=== PATIENT | female | born 1945 | race Caucasian/White ===

== ENCOUNTER 2016-09-12 06:35 | Inpatient (IN) | payer MEDICARE ==
[2016-09-12] VITALS (14 sets, daily range): BP systolic 101–152; BP diastolic 50–86
[~2016-09-12] VITALS: Ht 152.4 cm; Wt 71.2 kg
[~2016-09-12 06:35] MED LIST: ASPIRIN EC81 MG PO; ASPIRIN LOW DOS81 MG PO; AVELOX400 MG PO; AZITHROMYCIN500 MG PO; CALCIUM/D600 M3 PO; DIFLUCAN PO; DUONEB INH; ESTRACE1 MG PO; FISH OIL1000 MG PO; FLEXERIL10 MG PO; LASIX 20 MG20 MG/TAB PO; LEVAQUIN750 MG PO; LORTAB 5 PO; LORTAB5 PO; LOTRISONE CREAM15 G1 EX; Levaquin OR; MEDDOSEPAK; NEXIUM40 M1 PO; NEXIUM40 MG PO; OMNICEF300 M1 OR; OS CAL PO; OSCAL PO; OSTEO BI-FLE OR; PREDNISONE10 MG PO; PREDNISONE2.5 MG PO; PREDNISONE50 MG; PROVENTIL0.083 % IN; SEROQUEL50 MG OR; SERTRALINE25 MG PO; SERTRALINE50 MG PO; SYNTHROID75 MCG PO; VESICARE5 MG PO; WOMENS DAILY PO; XANAX0.25 MG PO; ZOLOFT50 MG PO
--- NOTE | 2016-09-12 06:35 | NUR ---
PATIENT IMMEDIATELY TO TREATMENT AREA, UNDRESSED INTO A GOWN. PLACED ON MONITOR, TRIAGE COMPLETED AT BEDSIDE. AWAITING MD SPIVEY.
--- NOTE | 2016-09-12 07:30 | NUR ---
PT RESTING COMFORTABLY ON STRETCHER. SAO2=97% ON RA. SKIN WARM AND DRY. PT A&O X3. CALL LIGHT WITHIN REACH.
[2016-09-12] MEDS ORDERED: SYMBICORT1 AE1 IN ×2 (08:04→15:45)
[2016-09-12] MEDS ORDERED: FOLIC ACID1 MG PO (08:05)
[2016-09-12] MEDS ORDERED: OTREXUP7.5 MG/0.4 SC (08:05)
[2016-09-12] MEDS ORDERED: CETIRIZINE10 MG PO (08:06)
[2016-09-12] MEDS ORDERED: PREDNISONE5 MG PO (08:07)
[2016-09-12] MEDS ORDERED: PREDNISONE1 MG PO (08:07)
[2016-09-12 08:08] LABS: HEMATOCRIT 36.8 % (37.0-47.0); IMMATURE GRANULOCYTES 0.5 % (0.0-1.0); MEAN CELL VOLUME 95.1 fL CALC (80.0-100.0); MEAN CORPUSCULAR HGB CONC 32.6 g/L CALC (32.0-36.0); NEUT# 8.4 thou/uL (2.00-7.15); RED BLOOD COUNT 3.87 mill/uL (4.20-5.60); RED CELL DISTRI WIDTH 14.6 % (11.5-15.5)
[2016-09-12 08:22] LABS: INTERNATIONAL NORMALIZED RATIO 0.9 RATIO (0.7-1.3); PROTHROMBIN TIME 10.2 SECONDS (9.0-12.5)
[2016-09-12 08:25] LABS: ALBUMIN 4.1 g/dL (3.2-5.0); ALKALINE PHOSPHATASE 102 u/l (38-126); ANION GAP 14 (6-22 (CALC)); BILIRUBIN, TOTAL 0.9 mg/dL (0.0-1.4); BUN 7 mg/dL (8-23); BUN/CREATININE RATIO 12 (12-20 (CALC)); CALCIUM 9.6 mg/dL (8.4-10.2); CARBON DIOXIDE 26 mmol/l (22-30); CHLORIDE 99 mmol/l (95-108); CREATININE 0.6 mg/dL (0.5-1.0); GFR > 60 ML/MIN (>=60 (CALC)); GFR FOR AFR.AMER. > 60 ML/MIN (>=60 (CALC)); GLUCOSE 100 mg/dL (82-115); POTASSIUM 3.7 mmol/l (3.5-5.1); SGOT/AST 27 u/l (9-36); SGPT/ALT 24 u/l (11-66); SODIUM 135 mmol/l (137-146); TOTAL PROTEIN 7.9 g/dL (6.3-8.2)
[2016-09-12 08:36] LABS: MYOGLOBIN 37 ng/mL (0 - 62)
--- NOTE | 2016-09-12 08:41 | NUR ---
PT RESTING ON STRETCHER. SAO2 BETWEEN 93-96% ON RA. LUNG SOUNDS DIMINISHED ON R SIDE. RESP EVEN AND UNLABORED. RR 24. SKIN WARM AND DRY. PT A& OX3. CALL LIGHT WIHTIN REACH.
--- NOTE | 2016-09-12 08:55 | NUR ---
PT'S HR UP TO 160-170S. MD NOTIFIED AND AT BEDSIDE.
--- NOTE | 2016-09-12 09:09 | NUR ---
SECOND 10MG CARDIAZEM GIVEN IVP PER MD ORDER FOR HR 154 BP 147/60. [id number]% ON 2L NC. PT ANXIOUS AND TEARFUL, WORRIED ABOUT "MAKING IT TO HER GRANDDAUGHTER;S [place]ING".
--- NOTE | 2016-09-12 09:45 | NUR ---
HR REMAINS IN 160-180S. AWARE. [id number]% ON 2L NC. PT RESTING COMFORTABLY. NO DISTRESS. PT DENIES PAIN AND SOB. CONTINUING TO MONITOR
--- NOTE | 2016-09-12 09:51 | NUR ---
CARDIAZEM TITRATED TO 15ML/HR FOR HR [id number]. AWARE.
--- NOTE | 2016-09-12 10:17 | NUR ---
PT CONVERTED TO SR WITH HR 108. NOTIFIED.
--- NOTE | 2016-09-12 10:33 | NUR ---
[facility] STOPPED PER .
--- NOTE | 2016-09-12 10:45 | NUR ---
REPORT GIVEN TO NURYS HUMPHREY
--- NOTE | 2016-09-12 11:13 | NUR ---
UNASSYN BEGUN PER ORDER, INFUSING THRU LAC
--- NOTE | 2016-09-12 11:58 | NUR ---
REPORT GIVEN TO SHERYL HUMPHREY
--- NOTE | 2016-09-12 12:12 | NUR ---
PT ARRIVED TO FLOOR VIA STRETCHER ACCOMPANIED BY ED STAFF X 1. PT DENIES PAIN. REPORTING OF CONCERNS ENCOURAGED. PLAN OF CARE DISCUSSED. PT ANXIOUS. TEARFUL. EMOTIONAL COMFORT PROVIDED. RELAXATION ATTEMPTS MADE. PT REFUSING TO ANSWER ADMISSION QUESTIONS AT THIS TIME. CALL LIGHT REVIEWED AND IN REACH. PT STATES UNDERSTANDING.
--- NOTE | 2016-09-12 12:13 | NUR ---
PT TO ROOM MED SURG FOR CONTINUATION OF CARE.
[2016-09-12 12:18] LABS: URINE BILIRUBIN - DIPSTICK NEGATIVE (NEGATIVE); URINE BLOOD DIPSTICK TRACE-INTACT (NEGATIVE); URINE CLARITY CLEAR; URINE COLOR YELLOW; URINE GLUCOSE - DIPSTICK NEGATIVE (NEGATIVE); URINE KETONE NEGATIVE (NEGATIVE); URINE LEUK ESTERASE NEGATIVE (NEGATIVE); URINE NITRITE - DIPSTICK NEGATIVE (Negative); URINE PH 7.5 (4.5-8.0); URINE PROTEIN - DIPSTICK NEGATIVE (NEG-TRACE); URINE UROBILINOGEN - DIPSTICK 0.2 E.U./dL (0.2)
--- NOTE | 2016-09-12 15:00 | NUR ---
PT REFUSING CT AT THIS TIME. STATES "IM NOT GOING ANYWHERE UNTIL I TALK TO THE DR." DR. AUGUSTIN NOTIFIED AND IN TO SEE PT NOW. MULTIPLE FAMILY MEMBERS AT BEDSIDE.
--- NOTE | 2016-09-12 16:17 | NUR ---
NOTIFIED BY ED STAFF OF AFIB W/ RVR, RATE IN 180'S. DR. AL NOTIFIED. ORDER FOR TRANSFER TO ICU GIVEN. PT TRANSFERED TO ICU BED 4. NO SOB NOTED. DENIES PAIN.
--- NOTE | 2016-09-12 16:25 | NUR ---
PT ARRIVED TO UNIT BED 4 VIA W/C TRANSFER FROM MED SURG FOR A FIB RVR, PT ALERT AND ORIENTED STOOD AND TRANSFERRED FROM WC TO BED WITH MIN ASSIST, SOME ANXIETY NOTED, PT POOR HISTORIAN RELATED TO PERSONAL MEDICAL HISTORY, ASSESSMENT COMPLETED SEE LUNGS CLEAR WITH HISTORY OF LUNG CA IN R MIDDLE LOBE WITH SURGICAL INTERVENTION (5YRS AGO) AND RE-OCCURENCE IN RLL RECENTLY WITH RADIATION TREATMENT WITH , SKIN WARM DRY AND INTACT WITH NO BREAKDOWN NOTED, BP STABLE TEMP 99.1, TELE READING A FIB RATE 150-200, ORIENTED TO ROOM AND UNIT, ALL MONITORING EQUIPMENT EXPLAINED PRIOR TO APPLICATION, CALL ESTEVEZ WITHIN REACH, WILL CONTINUE TO MONITOR
--- NOTE | 2016-09-12 16:40 | NUR ---
HERE TO SEE PT, VERBAL ORDER TO HOLD DIGOXIN ( PREVIOUSLY ORDERED) AND TO GIVE CARDIZEM BOLUS IV FOLLOWED BY GTT IF NO CONVERSION WITH BOLUS...WILL MEDICATE ORDERED
--- NOTE | 2016-09-12 17:05 | NUR ---
MEDICATED WITH CARDIZEM BOLUS AND GTT STARTED ORDERED, TELE STILL READING A FIB WITH RATE MORE SLIGHTLY MORE CONTROLLED BUT OCCASIONALLY STILL UP TO 150'S, DAUGHTER AT BEDSIDE, OFFERS NO OTHER COMPLAINTS, WILL CONTINUE TO MONITOR
--- NOTE | 2016-09-12 17:56 | NUR ---
SET UP ASSIST PROVIDED EARLIER FOR PM MEAL, PT CONVERTED TO SR RATE IN THE 80'S RT AT BEDSIDE FOR EKG, WILL START CARDIZEM PO ORDERED, DAUGHTER REMAINS AT BEDSIDE, WILL CONTINUE TO MONITOR
--- NOTE | 2016-09-12 19:00 | NUR ---
REPORT FROM MILAGRO NASSAR. ASSUMED PT. CARE.
--- NOTE | 2016-09-12 19:30 | NUR ---
PT. AWAKE, ALERT, ORIENTED X 3. DENIES COMPLAINTS AT THIS TIME. PT. ASSISTED TO BEDSIDE COMMODE. APPROX 650 CC OF CLEAR YELLOW URINE OUT AT THIS TIME. DAUGHTER AT BEDSIDE. RESPS EVEN AND UNLABORED. MILD DIAZ. COUGH NOTED, BUT DENIES SPUTUM PRODUCTION. NO EDEMA NOTED.
--- NOTE | 2016-09-12 21:15 | NUR ---
RT CALLED FOR NEB TREATMENT AND AERO CHAMBER/SPACER. PT. TOLERATED NEB TREATMENT WELL. STATES IMPROVEMENT IN WORK OF BREATHING. RESPS EVEN AND UNLABORED. PT. STATES SHE WOULD LIKE TO WAIT TO TAKE HER XANAX PRN SLEEP. MAE. CALVILLO. CALL LIGHT WITHIN REACH. REMAINS IN SINUS RHYTHM WITHOUT ECTOPY.
--- NOTE | 2016-09-12 23:00 | NUR ---
PT. REMAINS SINUS RHYTHM ON THE MONITOR. DENIES COMPLAINTS OR NEED AT THIS TIME. IV DRESSING TO LAC CHANGED AND FLUSHED AT THIS TIME. PT. CONTINUES TO DENY PAIN OR NEED. WILL CONTINUE TO MONITOR.
[2016-09-13] VITALS (8 sets, daily range): BP systolic 107–140; BP diastolic 52–70
--- NOTE | 2016-09-13 | NUR ---
PT. ASSISTED TO BEDSIDE COMMODE. REMAINS SINUS RHYTHM IN THE 70-80'S. BP STABLE. APPROX 200 CC OF URINE WITH STRONG ODOR NOTED. PT. STATES SHE HAS HX OF YEAST INFECTIONS WHEN SHE TAKES ANTIBIOTICS.
--- NOTE | 2016-09-13 00:05 | NUR ---
ZOSYN INFUSING WITHOUT SX OF INFILTRATION OR EXTRAVASATION. NO REACTIONS NOTED. PT. REMAINS AFEBRILE AT THIS TIME. AROUSABLE TO LIGHT VERBAL STIMULI. CALL LIGHT WITHIN REACH, WILL CONTINUE TO MONITOR.
--- NOTE | 2016-09-13 01:45 | NUR ---
PT. RESTING IN BED IN NO DISTRESS. PT. REMAINS SINUS RHYTHM WITHOUT ECTOPY. RESPS EVEN AND UNLABORED. SKIN WARM AND DRY. REMAINS AFEBRILE. CONTINUES WITH INTERMITTENT DRY COUGH. CALL LIGHT WITHIN REACH.
--- NOTE | 2016-09-13 03:46 | NUR ---
PT. AWAKE, WATCHING TELEVISION AT THIS TIME. DENIES COMPLAINTS OR NEED. RESPS EVEN AND UNLABORED. SINUS RHYTHM 60-70'S. WILL CONTINUE TO MONITOR.
--- NOTE | 2016-09-13 04:15 | NUR ---
LAB AT BEDSIDE TO DRAW PT. REMAINS AWAKE, ALERT, ORIENTED X 3. SKIN WARM AND DRY. AFEBRILE. RESPS EVEN AND UNLABORED. REMAINS IN SINUS RHYTHM WITHOUT ECTOPY NOTED.
[2016-09-13 04:36] LABS: IMMATURE GRANULOCYTES 0.7 % (0.0-1.0); MEAN CELL VOLUME 95.2 fL CALC (80.0-100.0); MEAN CORPUSCULAR HGB 30.8 pG CALC (26.0-32.0); MEAN CORPUSCULAR HGB CONC 32.4 g/L CALC (32.0-36.0); NEUT# 13.27 thou/uL (2.00-7.15); RED BLOOD COUNT 3.57 mill/uL (4.20-5.60); RED CELL DISTRI WIDTH 14.8 % (11.5-15.5)
[2016-09-13 04:50] LABS: ANION GAP 14 (6-22 (CALC)); BUN 13 mg/dL (8-23); BUN/CREATININE RATIO 19 (12-20 (CALC)); CALCIUM 9.1 mg/dL (8.4-10.2); CALCULATED LDLCHOLESTEROL 60 mg/dL (62-129 (CALC)); CARBON DIOXIDE 23 mmol/l (22-30); CHLORIDE 101 mmol/l (95-108); CREATININE 0.7 mg/dL (0.5-1.0); GFR > 60 ML/MIN (>=60 (CALC)); GFR FOR AFR.AMER. > 60 ML/MIN (>=60 (CALC)); GLUCOSE 128 mg/dL (82-115); HDL CHOLESTEROL 86 mg/dL (>=40); MAGNESIUM 2.4 mg/dL (1.6-2.3); POTASSIUM 4.5 mmol/l (3.5-5.1); SODIUM 133 mmol/l (137-146); TOTAL CHOLESTEROL 153 mg/dl (0-199); TOTAL TRIGLYCERIDES 37 mg/dl (30-149); VLDL CHOLESTROL 7 mg/dl (0-48 (CALC))
[2016-09-13] MEDS ORDERED: SULFASALAZIN500 M1 PO (06:03)
--- NOTE | 2016-09-13 06:30 | NUR ---
IV ABX INFUSING AT THIS TIME. NO REACTIONS NOTED. SITTING IN CHAIR AT BEDSIDE. DENIES COMPLAINTS OR NEEDS. CALL LIGHT WITHIN REACH. SPO2 IS 97% ON 2L HUMIDIFIED NC.
--- NOTE | 2016-09-13 07:20 | NUR ---
PT ALERT AND ORIENTED SITTING IN RECLINER AT BEDSIDE, TELE CONTINUES TO READ SR RATE IN THE 70'S, BP STABLE, OFFERS NO COMPLAINTS, AM ASSESSMENT COMPLETED SEE INTERVENTION, SKIN WARM AND DRY, PT TALKING ABOUT WANTING TO GET BETTER AND GO HOME SO THAT SHE AN ATTEND HER GRANDDAUGHTERS WED[place]ING IN [place], SAFETY MEASURES REINFORCED, WILL CONTINUE TO MONITOR.
--- NOTE | 2016-09-13 07:45 | NUR ---
SET UP ASSIST PROVIDED FOR AM MEAL, CALL ESTEVEZ WITHIN REACH, WILL CONTINUE TO MONITOR.
--- NOTE | 2016-09-13 08:40 | NUR ---
IN TO SEE PATIENT, PLAN OF CARE DISCUSSED
--- NOTE | 2016-09-13 10:33 | NUR ---
PT REMAINS SITTING UP IN RECLINER AT BEDSIDE, OFFERS NO NEW COMPLAINTS, VISIOTR AT BEDSIDE, IV ANTIBIOTICS INFUSING AT PRESCRIBED RATE, WILL CONTINUE TO MONITOR
--- NOTE | 2016-09-13 11:34 | NUR ---
REMAINS SITTING IN RECLINER, VISITORS AT BEDSIDE, CALL ESTEVEZ WITHIN REACH, WILL CONTINUE TO MONITOR.
--- NOTE | 2016-09-13 12:03 | NUR ---
SET UP ASSIST PROVIDED FOR AFTERNOON MEAL
--- NOTE | 2016-09-13 13:07 | NUR ---
PT RESTING IN BED, OFFERS NO NEW COMPLAINTS, DAUGHTER REMAINS AT BEDSIDE, WILL CONTINUE TO MONITOR.,
--- NOTE | 2016-09-13 14:08 | NUR ---
PT SPOUSE AT BEDSIDE, CALL ESTEVEZ WITHIN REACH, WILL CONTINUE TO MONITOR
--- NOTE | 2016-09-13 14:49 | NUR ---
S: CALLUM CORREA is a 71 F who presents with possible pneumonia. She has a history of Hypothyroidism, GERD, COPD, Lung cancer, partial RML resection, chemo and radiation therapy. All medications in patient's chart were reviewed. O: VS: BP 109/55 mm Hg, P 92 bt/min, RR 18 breath/min, T 97.3 F W 68.8 kg, HT 60 inches, Scr= 0.7,CrCl= 44 ml/min A: Blood culture is pending. P: Patient is on Zosyn 3.375 gm IV Q6H. Vancomycin ordered for pharmacy to dose. Start Vancomycin 1 gm IV Q24H. Vancomycin trough is drawn before the 4th dose on 09/15/16 at 0930 AM. Vancomycin goal trough is between 15-20 mcg/ml. Pharmacy will follow and or advise on antibiotics use as needed.
--- NOTE | 2016-09-13 15:15 | NUR ---
pt up to bsc then ambulated to stretcher to radiology with tele via stretcher, ECHO completed and pt back to room, stood off stretcher and up in recliner a bedside at this time, tolerated activity well, will continue to monitor.
--- NOTE | 2016-09-13 16:53 | NUR ---
PT REMAINS SITTIGN UP IN RECLINER AT BEDSIDE, OFFERS NO NEW COMPLAINTS, CALL ESTEVEZ WITHIN REACH.
--- NOTE | 2016-09-13 19:00 | NUR ---
REPORT FROM MILAGRO NASSAR. ASSUMED PT. CARE.
--- NOTE | 2016-09-13 19:30 | NUR ---
PT. SITTING AT BEDSIDE WASHING UP AT THIS TIME. WITH EXERTION, PT. SPO2 HAS DECREASED TO 83-85% ON RA. MILD TO MODERATED DIAZ NOTED. PT. ASSISTED BACK TO BED AT THIS TIME. REMAINS IN SR WITH RATE APPROX 80'S. DENIES OTHER COMPLAINTS.
--- NOTE | 2016-09-13 20:45 | NUR ---
PT. C/O LT. CHEST TIGHTNESS AND PULLING AT LT. ARM STATING WITH MILD DISCOMFORT. RT. CALLED FOR EKG. EKG APPEARS WNL. PT. STATES SHE MAY HAVE OVEREXERTED HERSELF WHILE WASHING UP. WILL CONTINUE TO ASSESS AND MONITOR FOR INCREASED DISCOMFORT AND RHYTHM CHANGES.
--- NOTE | 2016-09-13 22:05 | NUR ---
PT. ASSISTED TO BEDSIDE COMMODE AND THEN BACK TO BED. TOLERATED MOVEMENT BETTER AT THIS TIME, APPROX 200 CC OF YELLOW URINE OUT AT THIS TIME. PT. REMAINS SINUS RHYTHM IN THE 70'S. CALL LIGHT WITHIN REACH. WILL CONTINUE TO MONITOR.
[2016-09-14] VITALS (9 sets, daily range): BP systolic 106–131; BP diastolic 60–76
--- NOTE | 2016-09-14 00:40 | NUR ---
PT. RHYTHM HAS CHANGED TO A-FIB WITH RVR. RATE APPROX 120. WILL MEDICATE WITH PRN MEDICATIONS ORDERED AND WILL CONTINUE TO MONITOR AND REASSESS. PT. AROUSABLE TO LIGHT VERBAL STIMULI. UPDATED ON PLAN OF CARE.
--- NOTE | 2016-09-14 02:30 | NUR ---
PT. REMAINS IN A-FIB WITH RATE BETWEEN 80-120'S. WILL CONTINUE TO MONITOR. PT. STATES DIZZINESS UPON STANDING. BP STABLE. RESTING IN BED WITH EYES CLOSED.
--- NOTE | 2016-09-14 04:25 | NUR ---
LAB AT BEDSIDE TO DRAW PT. ASSISTED TO BEDSIDE COMMODE AT THIS TIME. REMAINS IN A-FIB WITH RATE BETWEEN 90-125. DENIES COMPLAINTS OF CP OR SOB AT THIS TIME. AWAKE, ALERT, ORIENTED X 3. SKIN WARM AND DRY. AFEBRILE.
[2016-09-14 04:40] LABS: IMMATURE GRANULOCYTES 0.7 % (0.0-1.0); MEAN CELL VOLUME 95.5 fL CALC (80.0-100.0); MEAN CORPUSCULAR HGB 30.9 pG CALC (26.0-32.0); MEAN CORPUSCULAR HGB CONC 32.4 g/L CALC (32.0-36.0); NEUT# 11.3 thou/uL (2.00-7.15); RED BLOOD COUNT 3.56 mill/uL (4.20-5.60); RED CELL DISTRI WIDTH 14.8 % (11.5-15.5)
[2016-09-14 04:53] LABS: ANION GAP 13 (6-22 (CALC)); BUN 16 mg/dL (8-23); BUN/CREATININE RATIO 26 (12-20 (CALC)); CALCIUM 8.7 mg/dL (8.4-10.2); CARBON DIOXIDE 23 mmol/l (22-30); CHLORIDE 103 mmol/l (95-108); CREATININE 0.6 mg/dL (0.5-1.0); GFR > 60 ML/MIN (>=60 (CALC)); GFR FOR AFR.AMER. > 60 ML/MIN (>=60 (CALC)); GLUCOSE 140 mg/dL (82-115); POTASSIUM 4.8 mmol/l (3.5-5.1); SODIUM 135 mmol/l (137-146)
--- NOTE | 2016-09-14 06:05 | NUR ---
PT. TAKEN DOWN TO RADIOLOGY FOR 2VIEW CHEST X-RAY. REMAINS AWAKE, ALERT, ORIENTED X 3. SKIN WARM AND DRY. RAJINDER. REAMAINS AFEBRILE. PT. CONTINUES IN A-FIB WITH RATE IN THE 80-100'S. WILL CONTINUE TO ASSESS.
--- NOTE | 2016-09-14 09:04 | NUR ---
PATIENT SITTING UP IN CHAIR. RESP EVEN AND UNLABORED. NO S/S OF DISTRESS NOTED. PATIENT MEDICATED ORDERED. PATIENT DENIES ANY NEEDS OR PAIN. CALL LIGHT IN REACH. ENCOURAGED TO CALL FOR ANY NEEDS.
--- NOTE | 2016-09-14 12:51 | NUR ---
PATIENT AMUBLATES TO BED. VISITOR AT BEDSIDE. RESP EVEN AND UNLABORED. NO S/S OF DISTRESS NOTED. CALL LIGHT IN REACH. ENCOURAGED TO CALL FOR ANY NEEDS.
--- NOTE | 2016-09-14 14:05 | NUR ---
FROM ICU VIA WHEELCHAIR ACCOMPANIED BY THALIA HEARD. AMBULATES TO BED WITH STEADY GAIT. RESPS EVEN AND UNLABORED ON O2 VIA NC, TELE MONITOR IN PLACE. DENIES PAIN OR DISCOMFORT. ORIENTED TO ROOM AND CALL SYSTEM. SAFETY PRECAUTIONS REINFORCED. BED IN LOWEST POSITION WITH WHEELS LOCKED. CALL LIGHT WITHIN REACH. ENCOURAGED PT TO CALL FOR ANY NEEDS.
--- NOTE | 2016-09-14 16:00 | NUR ---
SITTING IN BEDSIDE CHAIR. FAMILY AT BEDSIDE. RESPS EVEN AND UNLABORED ON O2 VIA NC, TELE MONITOR IN PLACE. VOICES NO C/O AT THIS TIME. CALL LIGHT WITHIN REACH. WILL CONTINUE TO MONITOR.
--- NOTE | 2016-09-14 19:00 | NUR ---
RECEIVED SHIFT REPORT FROM MILAGRO ESQUIVEL. PATIENT SITTING UP IN RECLINER CHAIR AND APPEARS TO BE IN NO APPARENT DISTRESS OR DISCOMFORT. WILL CONTINUE TO MONITOR. .
--- NOTE | 2016-09-14 23:41 | NUR ---
MEDICATION WILL NOT FILE. ERROR MESSAGE STATING ZOSYN 3.375 GN IN na 0.9% Q6H IS BEING DOCUMENTED ON [id number] AT 09/14/16-0. PATIENT AND MEDICATION WERE SCANNED PRIOR TO COMPUTER GOING .
--- NOTE | 2016-09-15 | NUR ---
PATIENT RESTING IN BED WITH EYES CLOSED AND IS IN NO APPARENT DISTRESS OR DISCOMFORT. WILL CINTINUE TO MONITOR.
[2016-09-15 03:00] VITALS: BP 144/71
[2016-09-15 03:50] VITALS: BP 125/77
--- NOTE | 2016-09-15 03:50 | NUR ---
MICHELE CARTER FROM ED CALLED THAT PATIENT CONVERTED TO AFIB. PT BP AT THIS TIME IS 125/77 AND HR 106. PATIENT STATED THAT SHE GOT UP AND WAS COUGHING. PATIENT IS ASYMPTOMATIC AND APPEARS NOT TO BE IN ANY DISTRESS.
--- NOTE | 2016-09-15 06:00 | NUR ---
PATIENT C/O HAVING A SORE THROAT, ENCOURAGED DRINKIMG COOL FLUIDS.
--- NOTE | 2016-09-15 07:00 | NUR ---
RECEIVED BEDSIDE REPORT FROM JALYN HUMPHREY. SITTING IN BEDSIDE CHAIR. RESPS EVEN AND UNLABORED ON O2 VIA NC, TELE MONITOR IN PLACE. #20 LEJ PATENT, FLUSHES WELL, SITE APPEARS HEALTHY. DENIES PAIN OR DISCOMFORT. PLAN OF CARE DISCUSSED. SAFETY PRECAUTIONS REINFORCED. BED IN LOWEST POSITION WITH WHEELS LOCKED. CALL LIGHT WITHIN REACH. ENCOURAGED PT TO CALL FOR ANY NEEDS.
[2016-09-15 08:06] VITALS: BP 120/64
--- NOTE | 2016-09-15 11:09 | NUR ---
Vancomycin dosing Patient: Floor: Weight: 71.2 Kilograms Vancomycin single level analysis: Current dose being given: 1000 mg Current dosing interval: 24 hrs Current infusion time (hrs): 2 Single level Trough Data: Trough level obtained: 5 mcg/ml Timing of trough - Number of hours before next dose: 0.5 Hrs Desired peak: 30 mcg/ml Desired trough: 15 mcg/ml Estimated PK Parameters: New rate constant (ubaldo): 0.069 hr-1 New half-life: 10.05 Hours New Vd from levels: 49.84 Liters (0.7 L/kg) Give Vancomycin 1000 mg q 12 hrs at 1000,2200. Infuse over 2 hrs Expected Cpeak: 33 mcg/ml Expected Ctrough: 17 mcg/ml Next vancomycin trough on 09/17/16 at 0930, 30 minutes prior to dose.
[2016-09-15 11:14] VITALS: BP 141/55
--- NOTE | 2016-09-15 11:50 | NUR ---
DR VILLALBA IN WITH PT, NEW ORDERS RECEIVED.
--- NOTE | 2016-09-15 12:00 | NUR ---
SITTING IN BEDSIDE CHAIR. VISITORS AT BEDSIDE. DENIES PAIN OR DISCOMFORT. REFUSES LASIX 20MG PO. "THIS IS TOO LATE IN THE DAY, I WILL BE UP ALL NIGHT USING THE BATHROOM." CALL LIGHT WITHIN REACH.
[2016-09-15 15:10] VITALS: BP 126/62
--- NOTE | 2016-09-15 16:00 | NUR ---
RESTING IN SUPINE POSITION WITH EYES CLOSED, AWAKENS EASILY. RESPS EVEN AND UNLABORED ON ROOM AIR, TELE MONITOR IN PLACE. VOICES NO C/O. ALL NEEDS MET. CALL LIGHT WITHIN REACH.
[2016-09-15 19:50] VITALS: BP 127/62
--- NOTE | 2016-09-15 20:45 | NUR ---
PT RESTING IN SEMI FOWLERS POSITION;PT DENIES ANY PAIN OR DISCOMFORTS;RESPIRATIONS EVEN AND UNLABORED ON 02 @ 2 LITERS VIA NC;TELE MONITOR IN PLACE READING SR 90;IV SITE TO LEJ FLUSHED AND PATENT;PT REQUESTS PRN THROAT LOZENGE AT THIS TIME AND EDUCATED ON MEDICATION SCHEDULE,PT VERBALIZES UNDERSTANDING;ASSESSMENT COMPLETED;SKIN INTACT;PT RE-EDUCATED ON ROOM AND CALL LIGHT SYSTEM AND VERBALIZES UNDERSTANDING;PT DENIES ANY OTHER NEEDS AT THIS TIME;SAFETY PRECAUTIONS REINFORCED;BED IN LOWEST POSITION WITH CALL LIGHT IN REACH;WILL CONTINUE TO MONITOR
--- NOTE | 2016-09-15 22:00 | NUR ---
PT REQUESTS PRN ANXIETY MEDICATION PER MD ORDERS;PT MEDICATED ACCORDINGLY;PT DENIES ANY OTHER NEEDS;BED IN LOWEST POSITION WITH CALL LIGHT IN REACH;WILL CONTINUE TO MONITOR
[2016-09-16 00:15] VITALS: BP 126/69
--- NOTE | 2016-09-16 00:40 | NUR ---
PT RESTING IN SEMI FOWLERS POSITION;PT DENIES ANY PAIN OR DISCOMFORTS AT THIS TIME;TELE MONITOR IN PLACE;RESPIRATIONS EVEN AND UNLABORED ON O2 @ 2 LITERS VIA NC;PT DENIES ANY OTHER NEEDS AT THIS TIME;BED IN LOWEST POSITION WITH CALL LIGHT IN REACH;WILL CONTINUE TO MONITOR
[2016-09-16 04:30] VITALS: BP 134/74
--- NOTE | 2016-09-16 05:20 | NUR ---
PT APPEARS TO BE SLEEPING IN SEMI FOWLERS POSITION;WOKE PT TO ADMINISTER SCHEDULE MEDICATION;PT DENIES ANY PAIN OR DISCOMFORTS;PT STATES "I HAD A GOOD NIGHT";O2 ON @ 2 LITERS VIA NC,RESPIRATIONS EVEN AND UNLABORED;IV SITE TO LEJ FLUSHED AND PATENT;TELE MONITOR IN PLACE;PT DENIES ANY OTHER NEEDS AT THIS TIME;BED IN LOWEST POSITION WITH CALL LIGHT IN REACH;WILL CONTINUE TO MONITOR
--- NOTE | 2016-09-16 07:00 | NUR ---
RECEIVED BEDSIDE REPORT FROM PASCUAL HEARD. AMBULATING TO BATHROOM WITH STEADY GAIT. RESPS EVEN AND UNLABORED ON O2 VIA NC, TELE MONITOR IN PLACE. VOICES NO C/O AT THIS TIME. PLAN OF CARE DISCUSSED. SAFETY PRECAUTIONS REINFORCED. CALL LIGHT WITHIN REACH. WILL CONTINUE TO MONITOR.
[2016-09-16 08:33] VITALS: BP 145/55
[2016-09-16 10:56] VITALS: BP 135/64
[2016-09-16 11:35] VITALS: BP 135/64
--- NOTE | 2016-09-16 13:50 | NUR ---
DR VILLALBA IN WITH PT AND FAMILY MEMBER, NEW ORDERS RECEIVED.
[2016-09-16] MEDS ORDERED: MUCINEX600 MG PO (15:28)
[2016-09-16] MEDS ORDERED: ELIQUIS2.5 MG PO (15:28)
[2016-09-16] MEDS ORDERED: CHLORASEPTIC SO1 LOZ MT (15:29)
[2016-09-16] MEDS ORDERED: DULERA1 AE1 IN (15:29)
[2016-09-16] MEDS ORDERED: PREDNISONE5 MG PO (15:30)
[2016-09-16] MEDS ORDERED: CARDIZEM CD 180 PO (15:31)
[2016-09-16] MEDS ORDERED: DIGITEK0.25 M1 PO (15:32)
[2016-09-16] MEDS ORDERED: OXY1 (15:34)
[2016-09-16] MEDS ORDERED: LEVAQUIN750 MG PO (15:35)
--- NOTE | 2016-09-16 17:36 | NUR ---
Discharge instructions given. Patient verbalizes understanding of same. Discharged in stable condition via Wheelchair to Home with family. All belongings sent with pt.
--- NOTE | 2016-09-17 10:03 | NUR ---
ED CULTURE PHARMACY MEDICATION FOLLOW-UP Patient was seen in ED on 09/12/16 Cultures were reviewed from: Blood Patient was discharged with Rx for:LEVAQUIN FOR RLL PNEUMONIA C&S report came back with No Growth PLAN: Recommended: no change Comment:
== END 2016-09-16 17:40 | disposition home health service (06) | DRG 308 ==
LOC: ENPENDDIS → ED 06:35 → ED-I 09:50 → ED 11:12 → MS2 11:13 → ICU 15:44 → MS2 09-14 14:06
PROVIDERS: Emergency Medicine; ADMIT Internal Medicine; ATTEND Internal Medicine
DX: I48.91 Unspecified atrial fibrillation (principal); J18.9 Pneumonia, unspecified organism; J44.0 Chronic obstructive pulmonary disease with (acute) lower respiratory infection; I10 Essential (primary) hypertension; M06.9 Rheumatoid arthritis, unspecified; I25.10 Atherosclerotic heart disease of native coronary artery without angina pectoris; E03.9 Hypothyroidism, unspecified; K21.9 Gastro-esophageal reflux disease without esophagitis; E78.5 Hyperlipidemia, unspecified; K44.9 Diaphragmatic hernia without obstruction or gangrene; Z90.2 Acquired absence of lung [part of]; Z87.891 Personal history of nicotine dependence; Z79.899 Other long term (current) drug therapy; Z92.3 Personal history of irradiation; Z85.118 Personal history of other malignant neoplasm of bronchus and lung
CPT/HCPCS: J1160; Q9967

== ENCOUNTER 2016-10-09 21:30 | Inpatient (IN) | payer MEDICARE ==
[~2016-10-09] VITALS: Ht 152.4 cm; Wt 68.4 kg
[~2016-10-09 21:30] MED LIST changes: +CARDIZEM CD 180 PO; +CETIRIZINE10 MG PO; +CHLORASEPTIC SO1 LOZ MT; +DIGITEK0.25 M1 PO; +DULERA1 AE1 IN; +ELIQUIS2.5 MG PO; +FOLIC ACID1 MG PO; +MUCINEX600 MG PO; +OTREXUP7.5 MG/0.4 SC; +OXY1; +PREDNISONE1 MG PO; +PREDNISONE5 MG PO; +SULFASALAZIN500 M1 PO; +SYMBICORT1 AE1 IN
--- NOTE | 2016-10-09 21:35 | NUR ---
PT IMMEDIATELY TO RM 8 VIA WHEELCHAIR.
--- NOTE | 2016-10-09 22:04 | NUR ---
BREATHING TREATMENT GIVEN. MD WAS INFORMED ABOUT THE THE HEART RATE. HE SAID THAT IT IS OK TO ADMINISTER IT. PATIENT INSTRUCTED IN HOW TO BREATYH DEEPLY FOR GOOD DEPOSITION TO THE LUNGS.
--- NOTE | 2016-10-09 22:05 | NUR ---
RESPIRATORY AT BEDSIDE FOR NEB TX AND ABG.
--- NOTE | 2016-10-09 22:10 | NUR ---
PATIENT MEDICATED ORDERED. CARDIZEM GTT STARTED AT 5 MG/HR. WILL MONITOR HEART RATE FOR EFFECT AND TITRATE ACCORDINGLY.
--- NOTE | 2016-10-09 22:30 | NUR ---
HEART RATE REMAINS ELEVATED 140-160. CARDIZEM GTT INCREASED TO 10 MG/HR. WILL CONTINUE TO MONITOR.
[2016-10-09 22:37] LABS: HEMATOCRIT 34.4 % (37.0-47.0); HEMOGLOBIN 11.6 g/dl (12.0-16.0); IMMATURE GRANULOCYTES 0.7 % (0.0-1.0); MEAN CORPUSCULAR HGB CONC 33.7 g/L CALC (32.0-36.0); NEUT# 9.76 thou/uL (2.00-7.15); RED BLOOD COUNT 3.74 mill/uL (4.20-5.60)
--- NOTE | 2016-10-09 23:00 | NUR ---
PATIENT BP LOW. KVO FLUID RATE INCREASED PER MD. CARDIZEM GTT REMAINS AT 10 MG/HR.
[2016-10-09 23:14] LABS: ALBUMIN 3.4 g/dL (3.2-5.0); ALKALINE PHOSPHATASE 79 u/l (38-126); ANION GAP 12 (6-22 (CALC)); BILIRUBIN, TOTAL 0.9 mg/dL (0.0-1.4); BUN 9 mg/dL (8-23); BUN/CREATININE RATIO 15 (12-20 (CALC)); CALCIUM 8.5 mg/dL (8.4-10.2); CARBON DIOXIDE 24 mmol/l (22-30); CHLORIDE 99 mmol/l (95-108); CREATININE 0.6 mg/dL (0.5-1.0); GFR > 60 ML/MIN (>=60 (CALC)); GFR FOR AFR.AMER. > 60 ML/MIN (>=60 (CALC)); GLUCOSE 125 mg/dL (82-115); SGOT/AST 23 u/l (9-36); SGPT/ALT 18 u/l (11-66); SODIUM 131 mmol/l (137-146)
[2016-10-09 23:26] LABS: MYOGLOBIN 23 ng/mL (0 - 62)
[2016-10-09 23:32] LABS: ACT PARTIAL THROMBO TIME 34.8 SECONDS (20.0-32.5); INTERNATIONAL NORMALIZED RATIO 1.1 RATIO (0.7-1.3)
--- NOTE | 2016-10-09 23:45 | NUR ---
PATIENT BP DOWN 86/52. CARDIZEM GTT DECREASED TO 7.5MG. MD AWARE AND MAINTANENCE FLUIDS ORDERED. WILL CONTINUE TO MONITOR.
--- NOTE | 2016-10-10 00:18 | NUR ---
PATIENT TOLERATING FLUIDS AND CARDIZEM GTT. HEART RATE 100-130. PATIENT AWARE OF PLANS TO ADMIT. AWAITING MD FOR DISPOSITION.
--- NOTE | 2016-10-10 00:25 | NUR ---
PATIENT RHYTHM HAS CONVERTED TO NSR AT A RATE OF 70-80. EKG REPEATED. AWARE. CARDIZEM GTT DISCONTINUED. CONTINUE AWAITING DISPOSITION.
--- NOTE | 2016-10-10 00:55 | NUR ---
PATIENT REMAINS IN NSR. RESTING QUIETLY WITH EYES CLOSED. BP IS STABLE. CONTINUE AWAITING ADMISSION.
--- NOTE | 2016-10-10 02:09 | NUR ---
REPORT CALLED TO Zac ZHOU. PATIENT READIED FOR TRANSPORT TO FLOOR, VIA STRETCHER, WITH RN.
[2016-10-10 02:45] VITALS: BP 113/69
--- NOTE | 2016-10-10 02:45 | NUR ---
PT ARRIVED TO FLOOR VIA STRETCHER ACCOMPANIED BY ER STAFF. AMBULATED TO BED WITH STEADY GAIT. ADMIT ASSESSMENT COMPLETE.POC EXPLAINED. PT DENIES NEEDS. NO S/S OF DISTRESS. CALL LIGHT IN REACH. WILL CONTINUE TO MONITOR.
--- NOTE | 2016-10-10 04:45 | NUR ---
PT IN BED WITH EYES CLOSED.RESP EVEN AND UNLABORED. NO S/S OF DISTRESS. CALL LIGHT IN REACH. WILL CONTINUE TO MONITOR
--- NOTE | 2016-10-10 05:37 | NUR ---
PT IN BED WITH EYES CLOSED.RESP EVEN AND UNLABORED. NO S/S OF DISTRESS. CALL LIGHT IN REACH
--- NOTE | 2016-10-10 07:00 | NUR ---
SHIFT CHANGE REPORT FROM FERNANDEZ CEJA AWAKE ALERT AND ORIENTED SITTING UP IN RECLINER, O2 @2L VIA N/C IN PLACE, NO C/O DISCOMFORT AT THIS TIME,N TELE MONITOR IN PLACE, CALL ESTEVEZ IN REACH.
[2016-10-10 08:40] VITALS: BP 121/53
[2016-10-10 09:33] LABS: URINE BILIRUBIN - DIPSTICK NEGATIVE (NEGATIVE); URINE BLOOD DIPSTICK NEGATIVE (NEGATIVE); URINE CLARITY CLEAR; URINE COLOR YELLOW; URINE GLUCOSE - DIPSTICK NEGATIVE (NEGATIVE); URINE KETONE NEGATIVE (NEGATIVE); URINE LEUK ESTERASE NEGATIVE (NEGATIVE); URINE NITRITE - DIPSTICK NEGATIVE (Negative); URINE PROTEIN - DIPSTICK TRACE mg/dL (NEG-TRACE); URINE SPECIFIC GRAVITY 1.025; URINE UROBILINOGEN - DIPSTICK 0.2 E.U./dL (0.2)
[2016-10-10 12:42] VITALS: BP 142/78
--- NOTE | 2016-10-10 14:49 | NUR ---
REPORT CALLED TO CAMERON Bustos ) AT [facility].
--- NOTE | 2016-10-10 15:45 | NUR ---
Discharge instructions given. Patient verbalizes understanding of same. Discharged in stable condition via Medical Transport to [facility] with *Other. All belongings sent with pt.
== END 2016-10-10 15:40 | DRG 190 ==
LOC: ED 21:30 → ED-I 22:12 → ED 22:12 → ED-I 10-10 00:40 → ED 10-10 01:59 → MS2 10-10 02:00
PROVIDERS: Emergency Medicine; ADMIT Internal Medicine; ATTEND Internal Medicine
DX: J44.0 Chronic obstructive pulmonary disease with (acute) lower respiratory infection (principal); J18.9 Pneumonia, unspecified organism; M06.9 Rheumatoid arthritis, unspecified; I48.0 Paroxysmal atrial fibrillation; E03.9 Hypothyroidism, unspecified; K21.9 Gastro-esophageal reflux disease without esophagitis; I10 Essential (primary) hypertension; E78.5 Hyperlipidemia, unspecified; I25.10 Atherosclerotic heart disease of native coronary artery without angina pectoris; K44.9 Diaphragmatic hernia without obstruction or gangrene; Z85.118 Personal history of other malignant neoplasm of bronchus and lung; Z92.3 Personal history of irradiation; Z92.21 Personal history of antineoplastic chemotherapy; Z90.2 Acquired absence of lung [part of]; Z87.891 Personal history of nicotine dependence

== ENCOUNTER 2016-10-20 21:35 | Inpatient (IN) | payer MEDICARE ==
[~2016-10-20] VITALS: Ht 152.4 cm; Wt 72.0 kg
[2016-10-20 22:24] LABS: HEMATOCRIT 34.9 % (37.0-47.0); HEMOGLOBIN 11.4 g/dl (12.0-16.0); IMMATURE GRANULOCYTES 0.8 % (0.0-1.0); MEAN CELL VOLUME 92.3 fL CALC (80.0-100.0); MEAN CORPUSCULAR HGB 30.2 pG CALC (26.0-32.0); MEAN CORPUSCULAR HGB CONC 32.7 g/L CALC (32.0-36.0); NEUT# 14.04 thou/uL (2.00-7.15); RED BLOOD COUNT 3.78 mill/uL (4.20-5.60); RED CELL DISTRI WIDTH 13.9 % (11.5-15.5)
[2016-10-20 22:43] LABS: ALBUMIN 3.5 g/dL (3.2-5.0); ALKALINE PHOSPHATASE 69 u/l (38-126); BILIRUBIN, TOTAL 0.7 mg/dL (0.0-1.4); BUN 7 mg/dL (8-23); BUN/CREATININE RATIO 11 (12-20 (CALC)); CALCIUM 8.5 mg/dL (8.4-10.2); CARBON DIOXIDE 25 mmol/l (22-30); CHLORIDE 98 mmol/l (95-108); CREATININE 0.6 mg/dL (0.5-1.0); GFR > 60 ML/MIN (>=60 (CALC)); GFR FOR AFR.AMER. > 60 ML/MIN (>=60 (CALC)); GLUCOSE 120 mg/dL (82-115); SGOT/AST 18 u/l (9-36); SGPT/ALT 23 u/l (11-66); SODIUM 133 mmol/l (137-146); TOTAL PROTEIN 6.6 g/dL (6.3-8.2)
[2016-10-20 22:45] LABS: ANION GAP 14 (6-22 (CALC)); DIGOXIN 1.4 ng/mL (0.8-2.0)
[2016-10-20 22:50] LABS: ACT PARTIAL THROMBO TIME 29.2 SECONDS (20.0-32.5); INTERNATIONAL NORMALIZED RATIO 1.1 RATIO (0.7-1.3); PROTHROMBIN TIME 11.6 SECONDS (9.0-12.5)
[2016-10-20 22:53] LABS: MYOGLOBIN 22 ng/mL (0 - 62)
[2016-10-21] VITALS (18 sets, daily range): BP systolic 87–163; BP diastolic 24–69
[2016-10-21] MEDS ORDERED: LORTAB 5/3255 MG PO (03:05)
[2016-10-21] MEDS ORDERED: XANAX0.25 MG PO (03:06)
[2016-10-21 07:15] LABS: ALBUMIN 2.8 g/dL (3.2-5.0); ALKALINE PHOSPHATASE 60 u/l (38-126); ANION GAP 12 (6-22 (CALC)); BILIRUBIN, TOTAL 0.9 mg/dL (0.0-1.4); BUN 6 mg/dL (8-23); BUN/CREATININE RATIO 11 (12-20 (CALC)); CALCIUM 7.8 mg/dL (8.4-10.2); CARBON DIOXIDE 23 mmol/l (22-30); CHLORIDE 104 mmol/l (95-108); CREATININE 0.6 mg/dL (0.5-1.0); GFR > 60 ML/MIN (>=60 (CALC)); GFR FOR AFR.AMER. > 60 ML/MIN (>=60 (CALC)); GLUCOSE 119 mg/dL (82-115); SGOT/AST 14 u/l (9-36); SGPT/ALT 23 u/l (11-66); SODIUM 135 mmol/l (137-146); TOTAL PROTEIN 5.6 g/dL (6.3-8.2)
[2016-10-21 11:10] LABS: HEMATOCRIT 30.3 % (37.0-47.0); HEMOGLOBIN 9.7 g/dl (12.0-16.0); IMMATURE GRANULOCYTES 0.8 % (0.0-1.0); MEAN CELL VOLUME 92.9 fL CALC (80.0-100.0); MEAN CORPUSCULAR HGB 29.8 pG CALC (26.0-32.0); NEUT# 14.85 thou/uL (2.00-7.15); RED BLOOD COUNT 3.26 mill/uL (4.20-5.60); RED CELL DISTRI WIDTH 14.1 % (11.5-15.5)
[2016-10-21 15:11] LABS: URINE BILIRUBIN - DIPSTICK NEGATIVE (NEGATIVE); URINE BLOOD DIPSTICK NEGATIVE (NEGATIVE); URINE CLARITY CLEAR; URINE COLOR YELLOW; URINE GLUCOSE - DIPSTICK NEGATIVE (NEGATIVE); URINE KETONE NEGATIVE (NEGATIVE); URINE LEUK ESTERASE NEGATIVE (Negative); URINE NITRITE - DIPSTICK NEGATIVE (Negative); URINE PH 5.5 (4.5-8.0); URINE PROTEIN - DIPSTICK TRACE mg/dL (NEG-TRACE); URINE SPECIFIC GRAVITY 1.025; URINE UROBILINOGEN - DIPSTICK 0.2 E.U./dL (0.2)
[2016-10-22] VITALS (11 sets, daily range): BP systolic 103–140; BP diastolic 50–66
[2016-10-22 04:44] LABS: ANION GAP 12 (6-22 (CALC)); BUN 9 mg/dL (8-23); BUN/CREATININE RATIO 17 (12-20 (CALC)); CALCIUM 8.1 mg/dL (8.4-10.2); CARBON DIOXIDE 22 mmol/l (22-30); CHLORIDE 105 mmol/l (95-108); CREATININE 0.6 mg/dL (0.5-1.0); GFR > 60 ML/MIN (>=60 (CALC)); GFR FOR AFR.AMER. > 60 ML/MIN (>=60 (CALC)); GLUCOSE 154 mg/dL (82-115); POTASSIUM 4.3 mmol/l (3.5-5.1); SODIUM 135 mmol/l (137-146)
[2016-10-22 05:16] LABS: HEMATOCRIT 29.7 % (37.0-47.0); HEMOGLOBIN 9.4 g/dl (12.0-16.0); IMMATURE GRANULOCYTES 0.8 % (0.0-1.0); MEAN CORPUSCULAR HGB 29.7 pG CALC (26.0-32.0); MEAN CORPUSCULAR HGB CONC 31.6 g/L CALC (32.0-36.0); NEUT# 17.02 thou/uL (2.00-7.15); RED BLOOD COUNT 3.16 mill/uL (4.20-5.60)
[2016-10-23] VITALS (8 sets, daily range): BP systolic 112–158; BP diastolic 57–71
[2016-10-23 06:26] LABS: ANION GAP 14 (6-22 (CALC)); BUN 14 mg/dL (8-23); BUN/CREATININE RATIO 25 (12-20 (CALC)); CALCIUM 8.7 mg/dL (8.4-10.2); CARBON DIOXIDE 24 mmol/l (22-30); CHLORIDE 104 mmol/l (95-108); CREATININE 0.6 mg/dL (0.5-1.0); GFR > 60 ML/MIN (>=60 (CALC)); GFR FOR AFR.AMER. > 60 ML/MIN (>=60 (CALC)); GLUCOSE 129 mg/dL (82-115); POTASSIUM 4.9 mmol/l (3.5-5.1); SODIUM 136 mmol/l (137-146)
[2016-10-23 06:35] LABS: HEMATOCRIT 29.2 % (37.0-47.0); HEMOGLOBIN 9.9 g/dl (12.0-16.0); MEAN CELL VOLUME 93.6 fL CALC (80.0-100.0); MEAN CORPUSCULAR HGB 31.7 pG CALC (26.0-32.0); RED BLOOD COUNT 3.12 mill/uL (4.20-5.60)
[2016-10-23 06:36] LABS: MEAN CORPUSCULAR HGB CONC 33.9 g/L CALC (32.0-36.0); NEUT% 92 % (42-76); PLATELET COUNT 294 thou/uL (130-400); RED CELL DISTRI WIDTH 14.2 % (11.5-15.5)
[2016-10-23 06:37] LABS: LYMPH% 2 % (15-41); MONO% 6 % (2-13)
[2016-10-24] VITALS: BP 139/70
[2016-10-24 04:20] VITALS: BP 143/72
[2016-10-24 05:51] LABS: HEMATOCRIT 29.7 % (37.0-47.0); HEMOGLOBIN 9.6 g/dl (12.0-16.0); IMMATURE GRANULOCYTES 0.8 % (0.0-1.0); MEAN CELL VOLUME 92.5 fL CALC (80.0-100.0); MEAN CORPUSCULAR HGB 29.9 pG CALC (26.0-32.0); MEAN CORPUSCULAR HGB CONC 32.3 g/L CALC (32.0-36.0); NEUT# 18.3 thou/uL (2.00-7.15); RED BLOOD COUNT 3.21 mill/uL (4.20-5.60); RED CELL DISTRI WIDTH 14.5 % (11.5-15.5)
[2016-10-24 06:10] LABS: BUN 14 mg/dL (8-23); BUN/CREATININE RATIO 26 (12-20 (CALC)); CALCIUM 8.8 mg/dL (8.4-10.2); CARBON DIOXIDE 24 mmol/l (22-30); CREATININE 0.5 mg/dL (0.5-1.0); GFR > 60 ML/MIN (>=60 (CALC)); GFR FOR AFR.AMER. > 60 ML/MIN (>=60 (CALC)); GLUCOSE 116 mg/dL (82-115); POTASSIUM 4.6 mmol/l (3.5-5.1); SODIUM 138 mmol/l (137-146)
[2016-10-24 06:13] LABS: ANION GAP 17 (6-22 (CALC)); CHLORIDE 102 mmol/l (95-108)
[2016-10-24 08:05] VITALS: BP 150/66
[2016-10-24 11:07] VITALS: BP 144/67
[2016-10-24 12:38] LABS: TSH, 3RD GENERATION 1.17 uIU/mL (0.47 - 4.68)
[2016-10-24 15:20] VITALS: BP 138/65
[2016-10-24 19:00] VITALS: BP 149/75
[2016-10-25 05:13] VITALS: BP 142/71
[2016-10-25 05:54] LABS: ANION GAP 17 (6-22 (CALC)); BUN 14 mg/dL (8-23); BUN/CREATININE RATIO 24 (12-20 (CALC)); CARBON DIOXIDE 25 mmol/l (22-30); CHLORIDE 98 mmol/l (95-108); CREATININE 0.6 mg/dL (0.5-1.0); GFR > 60 ML/MIN (>=60 (CALC)); GFR FOR AFR.AMER. > 60 ML/MIN (>=60 (CALC)); GLUCOSE 116 mg/dL (82-115); POTASSIUM 4.7 mmol/l (3.5-5.1); SODIUM 135 mmol/l (137-146)
[2016-10-25 05:59] LABS: HEMATOCRIT 30.6 % (37.0-47.0); HEMOGLOBIN 9.9 g/dl (12.0-16.0); IMMATURE GRANULOCYTES 0.8 % (0.0-1.0); MEAN CELL VOLUME 91.1 fL CALC (80.0-100.0); MEAN CORPUSCULAR HGB 29.5 pG CALC (26.0-32.0); MEAN CORPUSCULAR HGB CONC 32.4 g/L CALC (32.0-36.0); NEUT# 12.38 thou/uL (2.00-7.15); RED BLOOD COUNT 3.36 mill/uL (4.20-5.60); RED CELL DISTRI WIDTH 14.4 % (11.5-15.5)
[2016-10-25 08:26] VITALS: BP 134/60
[2016-10-25 08:31] VITALS: BP 134/60
== END 2016-10-25 14:07 | DRG 205 ==
LOC: ED 21:35 → ED-I 10-21 01:08 → ED 10-21 02:06 → ICU 10-21 02:07 → MS2 10-23 13:30
PROVIDERS: Emergency Medicine; Internal Medicine; Nurse Practitioner Family; ADMIT Internal Medicine; ATTEND Internal Medicine
PROC: 0T9B70Z Drainage of Bladder with Drainage Device, Via Natural or Artificial Opening (ICD-10-PCS; principal; 2016-10-21)
DX: J70.0 Acute pulmonary manifestations due to radiation (principal); B37.1 Pulmonary candidiasis; J96.10 Chronic respiratory failure, unspecified whether with hypoxia or hypercapnia; D68.32 Hemorrhagic disorder due to extrinsic circulating anticoagulants; I48.0 Paroxysmal atrial fibrillation; J44.1 Chronic obstructive pulmonary disease with (acute) exacerbation; K22.2 Esophageal obstruction; C34.91 Malignant neoplasm of unspecified part of right bronchus or lung; T80.818A Extravasation of other vesicant agent, initial encounter; I10 Essential (primary) hypertension; I25.10 Atherosclerotic heart disease of native coronary artery without angina pectoris; M06.9 Rheumatoid arthritis, unspecified; E78.5 Hyperlipidemia, unspecified; F41.9 Anxiety disorder, unspecified; K44.9 Diaphragmatic hernia without obstruction or gangrene; K21.9 Gastro-esophageal reflux disease without esophagitis; K22.70 Barrett's esophagus without dysplasia; F32.9 Major depressive disorder, single episode, unspecified; R31.9 Hematuria, unspecified; T45.515A Adverse effect of anticoagulants, initial encounter; T38.1X5A Adverse effect of thyroid hormones and substitutes, initial encounter; Z92.3 Personal history of irradiation; Z90.2 Acquired absence of lung [part of]; Z87.891 Personal history of nicotine dependence; Z79.52 Long term (current) use of systemic steroids; Z79.01 Long term (current) use of anticoagulants; Y84.2 Radiological procedure and radiotherapy as the cause of abnormal reaction of the patient, or of later complication, without mention of misadventure at the time of the procedure; Y84.8 Other medical procedures as the cause of abnormal reaction of the patient, or of later complication, without mention of misadventure at the time of the procedure; Y92.239 Unspecified place in hospital as the place of occurrence of the external cause

== ENCOUNTER 2017-05-24 07:49 | Day surgery (SDC) | payer MEDICARE ==
[~2017-05-24] VITALS: Ht 149.9 cm; Wt 68.9 kg
[~2017-05-24 07:49] MED LIST changes: +ACETAMIN500 M2 PO; +CORDARONE/200 MG/TAB PO; +FLONASE AL50 MCG/ACT; +LORTAB 5/3255 MG PO; +OMEPRAZOLE20 M2 PO; +SPIRONOLACT50 M1 PO
[2017-05-24 12:23] VITALS: BP 106/58
== END 2017-05-24 13:00 | disposition home or self-care (01) ==
LOC: ENDO 07:49 → ORM 18:25 → ENDO 18:25 → ORM 20:00
PROVIDERS: ATTEND Internal Medicine Gastroenterology
PROC: 0DB48ZX Excision of Esophagogastric Junction, Via Natural or Artificial Opening Endoscopic, Diagnostic (ICD-10-PCS; principal; 2017-05-24)
PROC: 0D758ZZ Dilation of Esophagus, Via Natural or Artificial Opening Endoscopic (ICD-10-PCS; 2017-05-24)
PROC: 05HY33Z Insertion of Infusion Device into Upper Vein, Percutaneous Approach (ICD-10-PCS; 2017-05-24)
DX: K22.2 Esophageal obstruction (principal); K21.9 Gastro-esophageal reflux disease without esophagitis; R11.2 Nausea with vomiting, unspecified; K29.70 Gastritis, unspecified, without bleeding; K44.9 Diaphragmatic hernia without obstruction or gangrene; M06.9 Rheumatoid arthritis, unspecified; I48.91 Unspecified atrial fibrillation; I50.9 Heart failure, unspecified; T82.898A Other specified complication of vascular prosthetic devices, implants and grafts, initial encounter; Y83.8 Other surgical procedures as the cause of abnormal reaction of the patient, or of later complication, without mention of misadventure at the time of the procedure